=== PATIENT | male | born 1950 | race Caucasian/White ===

== ENCOUNTER 2024-02-03 05:05 | Day surgery (SDC) | payer OTHER ==
[2024-01-30 20:05] VITALS: BMI 21.7
[2024-02-03] MEDS ORDERED: PROPOFOL 20 ML ONE (10:19)
[2024-02-03] MEDS ORDERED: ONDANSETRON 4 MG/2 ML VIAL ONE (10:20)
[2024-02-03] MEDS ORDERED: SEVOFLURANE 250 ML BTL ONE (10:20)
[2024-02-03] MEDS ORDERED: ACETAMINOPHEN INJECTION 100 ML IVPB ONE (10:20)
[2024-02-03] MEDS ORDERED: MIDAZOLAM HCL 2 MG/2 ML SINGLE DOSE VIAL ONE (10:20)
[2024-02-03] MEDS ORDERED: LIDOCAINE HCL/PF 2% SDV 5ML VIAL ONE (10:20)
[2024-02-03] MEDS ORDERED: ONDANSETRON 4 MG/2 ML VIAL IVPUSH PRN (10:44)
[2024-02-03] MEDS ORDERED: oxyCODONE HCL 5 MG TABLET PO PRN (10:44)
[2024-02-03] MEDS ORDERED: LACTATED RINGERS SOLUTION 1,000 ML IV SCH (10:45)
[2024-02-03] MEDS ORDERED: DEXAMETHASONE SOD PHOSPHATE 4 MG/1 ML VIAL ONE (10:49)
[2024-02-03] MEDS ORDERED: ceFAZolin SODIUM 1 GM VIAL ONE (11:13)
[2024-02-03] MEDS: ceFAZolin SODIUM 1 GM VIAL IVPB ONE (11:15)
[2024-02-03] MEDS ORDERED: FUROSEMIDE 40 MG/4 ML INJECTABLE VIAL ONE (11:26)
[2024-02-03] MEDS ORDERED: ELECTROLYTE-148 SOLN 1,000 ML IV SCH (11:45)
[2024-02-03 13:14] VITALS: RESP 16
[2024-02-03 14:09] VITALS: BP 138/79; PULSE 69; TEMP 98
== END 2024-02-03 14:15 | disposition home or self-care (01) ==
LOC: JASU-SURG 05:05
PROVIDERS: ATTEND Urology
PROC: 0TCB8ZZ Extirpation of Matter from Bladder, Via Natural or Artificial Opening Endoscopic (ICD-10-PCS; principal; 2024-02-03 11:00)
PROC: 0VT08ZZ Resection of Prostate, Via Natural or Artificial Opening Endoscopic (ICD-10-PCS; 2024-02-03 11:00)
DX: N40.0 Benign prostatic hyperplasia without lower urinary tract symptoms (principal); N21.0 Calculus in bladder
CPT/HCPCS: 36415; 82360; 88300-TC; 88305-TC; 94760; J0131

== ENCOUNTER 2024-02-17 04:06 | Day surgery (SDC) | payer OTHER ==
[2024-02-17] MEDS ORDERED: ELECTROLYTE-148 SOLN 1,000 ML IV SCH (11:00)
[2024-02-17] MEDS ORDERED: MIDAZOLAM HCL 2 MG/2 ML SINGLE DOSE VIAL ONE (11:14)
[2024-02-17] MEDS ORDERED: ONDANSETRON 4 MG/2 ML VIAL ONE (11:16)
[2024-02-17 15:23] VITALS: BP 115/60; PULSE 64; RESP 18; TEMP 98.4
== END 2024-02-17 13:15 | disposition home or self-care (01) ==
LOC: JASU-SURG 04:06
PROVIDERS: ATTEND Urology
PROC: 0TF4XZZ Fragmentation in Left Kidney Pelvis, External Approach (ICD-10-PCS; principal; 2024-02-17 11:00)
DX: N20.0 Calculus of kidney (principal)